=== PATIENT | female | born 1990 | race Caucasian/White ===

== ENCOUNTER → 2018-07-30 | Outpatient (CLI) | payer OTHER ==
--- NOTE | 2018-07-30 07:52 | US ---
EXAMINATION TYPE: US abdomen complete DATE OF EXAM: 07/30/2018 COMPARISON: NONE CLINICAL HISTORY: 28-year-old female R10.9 ABD PAIN. TECHNIQUE: Multiple sonographic images of the abdomen are obtained. FINDINGS: EXAM MEASUREMENTS: Liver Length: 13.7 cm Gallbladder Wall: 0.3 cm CBD: 0.3 cm Spleen: 9.0 cm Right Kidney: 9.0 x 3.3 x 3.1 cm Left Kidney: 9.1 x 4.8 x 4.6 cm Pancreas: Obscured by bowel gas Liver: wnl Gallbladder: gravity dependent stones. No abnormal gallbladder distention, wall thickening, or perich olecystic fluid. Evidence for sonographic Abreu's sign: No CBD: wnl Spleen: wnl Right Kidney: wnl Left Kidney: wnl Upper IVC: wnl Abd Aorta: wnl IMPRESSION: Cholelithiasis. No ancillary findings of acute cholecystitis. No biliary ductal dilatation.
== END ==
LOC: RADUSWWP 06:54
PROVIDERS: ATTEND Family Medicine
DX: K80.20 Calculus of gallbladder without cholecystitis without obstruction (principal)
CPT/HCPCS: 76700

== ENCOUNTER → 2020-11-17 | Outpatient (CLI) | payer OTHER ==
[2020-11-17 13:00] LABS: Glucose 3 Hour, Gest 139 mg/dL
== END | disposition home or self-care (01) ==
LOC: LABWHC1 08:03
PROVIDERS: ATTEND Obstetrics & Gynecology
DX: Z34.03 Encounter for supervision of normal first pregnancy, third trimester (principal)
CPT/HCPCS: 36415; 82951; 82952

== ENCOUNTER → 2021-07-06 | Outpatient (CLI) | payer OTHER ==
--- NOTE | 2021-07-07 07:08 | US ---
EXAMINATION TYPE: Transabdominal DATE OF EXAM: 07/06/2021 3:56 PM COMPARISON: NONE CLINICAL HISTORY: and viability [id number]. EXAM PERFORMED: EXAM MEASUREMENTS: GESTATIONAL AGE / DATING Physician Established: Not yet established Dates by LMP: LMP unknown Dates by First Scan: No previous this is first scan Dates by Current Scan for: (9 weeks/4 days) EDC: 02-04-21 MATERNAL ANATOMY Uterus: 9.2 x 4.2 x 7.9cm Right Ovary: 3.1 x 1.9 x 1.7cm Left Ovary: 3.4 x 1.9 x 2.4cm Post CDS / Adnexa: wnl GESTATION / SURVEY CRL: 2.6cm (9 weeks/4 days) Yolk Sac (normal less than 6mm): 4mm Heart Rate: 174 bpm Rhythm: Normal IUP: Viable IUP Age Appropriate Anatomy Cord Insertion: Too early to visualize Limbs: Too early to visualize Calvarium: Too early to visualize Date of LMP: unknown Beta HcG (if available): Not available at this time IMPRESSION: Single viable intrauterine .
== END | disposition home or self-care (01) ==
LOC: RADUSWWP 15:04
PROVIDERS: ATTEND Obstetrics & Gynecology
DX: Z34.91 Encounter for supervision of normal pregnancy, unspecified, first trimester (principal); Z3A.09 9 weeks gestation of pregnancy
CPT/HCPCS: 76801; 76817

== ENCOUNTER → 2021-08-16 | Outpatient (CLI) | payer OTHER ==
[2021-08-17 00:43] LABS: Hepatitis B Surface Antibody Reactive (Nonreactive)
== END | disposition home or self-care (01) ==
LOC: LABWHC1 14:55
PROVIDERS: ATTEND Obstetrics & Gynecology
DX: Z33.1 Pregnant state, incidental (principal)
CPT/HCPCS: 36415; 82947; 86706; 86762; 86780

== ENCOUNTER 2021-09-11 09:27 | Emergency (ER) | payer OTHER ==
[2021-09-11 10:06] VITALS: RESP 18
--- NOTE | 2021-09-11 11:47 | US ---
EXAMINATION TYPE: US gallbladder DATE OF EXAM: 09/11/2021 COMPARISON: US CLINICAL HISTORY: pain. EC patient with RUQ pain x 6 days; known gallstones; 19 weeks EXAM MEASUREMENTS: Liver Length: 17.4 cm Gallbladder Wall: 0.2 cm CBD: 0.3 cm Right Kidney: 11.3 x 6.2 x 4.7 cm Pancreas: hyperechoic Liver: no masses seen; posterior right lobe is attenuated Gallbladder: multiple, nonmobile, shadowing gallstones seen with stone near neck = 1.0 x 0.9 x 0.7cm and largest stone in fundal gallbladder = 2.3 x 1.9 x 0.7cm Evidence for sonographic Abreu's sign: denies pain with probe pressure CBD: wnl Right Kidney: No hydronephrosis or masses seen IMPRESSION: 1. Cholelithiasis.
--- NOTE | 2021-09-11 13:16 | ED ---
Abdominal Pain HPI - General Chief Complaint: Abdominal Pain Stated Complaint: 19wks preg/Gallbladder problems Time Seen by Provider: 09/11/21 12:55 Source: patient, RN notes reviewed Mode of arrival: ambulatory Limitations: no limitations - History of Present Illness Initial Comments: Patient is a 31-year-old female that presents to the emergency department complaining of right upper quadrant pain. Patient does have a history of cholelithiasis. Patient is currently 19 weeks . Shebeen having an ongoing gallbladder [place] . She notes that she is scheduled to have her gallbladder taken out twice onto had rescheduled due to Covid and several pregnancies. Patient is otherwise well-appearing distress or pain. she denied chest pain first breath headache nausea vomiting diarrhea constipation fever fatigue chills. - Related Data Allergies Allergy/AdvReac Type Severity Reaction Status Date / Time No Known Allergies Allergy Verified 09/11/21 10:06 Review of Systems ROS Statement: Those systems with pertinent positive or pertinent negative responses have been documented in the HPI. ROS Other: All systems not noted in ROS Statement are negative. Past Medical History Past Medical History: Hyperlipidemia History of Any Multi-Drug Resistant Organisms: None Reported Past Surgical History: Orthopedic Surgery Past Psychological History: No Psychological Hx Reported Smoking Status: Never smoker Past Alcohol Use History: None Reported Past Drug Use History: None Reported General Exam Limitations: no limitations General appearance: alert, in no apparent distress, obese Head exam: Present: atraumatic, normocephalic, normal inspection Eye exam: Present: normal appearance, PERRL, EOMI. Absent: scleral icterus, conjunctival injection, periorbital swelling ENT exam: Present: normal exam, mucous membranes moist Neck exam: Present: normal inspection Respiratory exam: Present: normal lung sounds bilaterally. Absent: respiratory distress, wheezes, rales, rhonchi, stridor Cardiovascular Exam: Present: regular rate, normal rhythm, normal heart sounds. Absent: systolic murmur, diastolic murmur, rubs, gallop, clicks GI/Abdominal exam: Present: soft, tenderness (Right upper quadrant), normal bowel sounds. Absent: distended, guarding, rebound, rigid Extremities exam: Present: normal inspection, full ROM, normal capillary refill. Absent: tenderness, pedal edema, joint swelling, calf tenderness Neurological exam: Present: alert, oriented X3 Psychiatric exam: Present: normal affect, normal mood Skin exam: Present: warm, dry, intact, normal color. Absent: rash Course Vital Signs 09/11/21 10:01 Temperature 98.1 F Pulse Rate 83 Respiratory 18 Rate Blood Pressure 138/89 O2 Sat by Pulse 98 Oximetry Medical Decision Making - Medical Decision Making 31-year-old female 19 weeks with right upper quadrant pain history of clindamycin. Ultrasound of the gallbladder ordered. Ultrasound shows cholelithiasis. Patient declined any pain medication fluids at this time as she states she can take AT home herself. Patient declined labs at this time. As her pain is tolerable and she wants to go home. Patient is agreeable with discharge home. Case discussed with Dr. Abel, patient discharge home. - Radiology Data Radiology results: report reviewed, image reviewed Ultrasound gallbladder: Cholelithiasis. Disposition Clinical Impression: Cholelithiasis Disposition: HOME SELF-CARE Condition: Stable Instructions (If sedation given, give patient instructions): Gallstones (ED) Additional Instructions: Please return to the Emergency Department if symptoms worsen or any other concerns. Follow-up with primary care 1-2 days per Take Tylenol every 6 hours as needed for pain. Increase oral fluids. Avoid any fatty foods. Is patient prescribed a controlled substance at d/c from ED?: No Referrals: Alexis Iraheta MD [Primary Care Provider] - 1-2 days Time of Disposition: 13:16
[2021-09-11 14:27] VITALS: BP 139/80; PULSE 88; TEMP 98
== END 2021-09-11 13:30 | disposition home or self-care (01) ==
LOC: EC 09:27
DX: O99.612 Diseases of the digestive system complicating pregnancy, second trimester (principal); K80.20 Calculus of gallbladder without cholecystitis without obstruction; E78.5 Hyperlipidemia, unspecified; Z3A.19 19 weeks gestation of pregnancy
CPT/HCPCS: 76705; 99284

== ENCOUNTER → 2021-12-11 | Outpatient (CLI) | payer OTHER ==
[2021-12-11 13:31] LABS: Glucose 3 Hour, Gest 92 mg/dL
== END | disposition home or self-care (01) ==
LOC: LABWHC1 08:38
PROVIDERS: ATTEND Obstetrics & Gynecology
DX: O24.419 Gestational diabetes mellitus in pregnancy, unspecified control (principal); Z3A.00 Weeks of gestation of pregnancy not specified
CPT/HCPCS: 36415; 82951; 82952

== ENCOUNTER → 2022-07-19 | Outpatient (CLI) | payer OTHER ==
--- NOTE | 2022-07-19 10:24 | CT ---
EXAMINATION TYPE: CT abdomen wo con CT DLP: 489 mGycm, Automated exposure control for dose reduction was used. DATE OF EXAM: 07/19/2022 9:58 AM COMPARISON: Gallbladder ultrasound 09/11/2021, abdominal ultrasound 07/30/2018. CLINICAL INDICATION:Female, 32 years old with history of R10.12 LUQP , R10.9 ABD PAIN, K29.70 GASTRIT IS; Left upper quadrant pain TECHNIQUE: Standard CT of the abdomen without IV or oral contrast. Lack of IV or oral contrast limi ts evaluation of solid and hollow organ viscera. Coronal and sagittal reformats were performed. FINDINGS: LOWER CHEST: Unremarkable ABDOMEN LIVER: Unremarkable noncontrast appearance. GALLBLADDER AND BILE DUCTS: The gallbladder is surgically absent. No fluid collection within the gall bladder fossa. No biliary ductal dilatation. PANCREAS: Unremarkable noncontrast appearance. SPLEEN: Unremarkable noncontrast appearance. ADRENAL GLANDS: Unremarkable noncontrast appearance. KIDNEYS AND URETERS: No evidence of hydronephrosis or renal calculus. STOMACH AND BOWEL: Stomach and duodenum are unremarkable. No evidence of bowel obstruction. PERITONEUM: No evidence of pneumoperitoneum or free fluid. VASCULATURE: No evidence of aortic aneurysm. MUSCULOSKELETAL: No acute osseous abnormalities LYMPH NODES: No gross evidence for lymphadenopathy. SOFT TISSUE/ABDOMINAL WALL: Small fat filled umbilical hernia. IMPRESSION: No acute abdominal process.
== END | disposition home or self-care (01) ==
LOC: RADCTMAIN 09:30
PROVIDERS: ATTEND Family Medicine
DX: K29.70 Gastritis, unspecified, without bleeding (principal); R10.12 Left upper quadrant pain; R10.9 Unspecified abdominal pain
CPT/HCPCS: 74150